=== PATIENT | female | born 1970 | race Caucasian/White ===

== ENCOUNTER 2016-05-06 14:26 | Emergency (ER) | payer OTHER ==
--- NOTE | 2016-05-06 15:10 | UC ---
Throat Pain/Nasal Floyd HPI - HPI Summary HPI Summary: Pt c/o nasal congestion, cough, sinus pressure, upper jaw "aching" X 2 weeks. - History of Current Complaint Chief Complaint: UCGeneralIllness Stated Complaint: COUGH/CONGESTION/DIZZY Time Seen by Provider: 05/06/16 15:08 Hx Obtained From: Patient Hx Last Menstrual Period: 04/08/16 ?: No Onset/Duration: Gradual Onset, Lasting Weeks - 2 weeks Severity: Moderate Associated Signs & Symptoms: Positive: Sinus Discomfort Related History: Seasonal Allergies, Smoking - Allergies/Home Medications Allergies/Adverse Reactions: Allergies Allergy/AdvReac Type Severity Reaction Status Date / Time Bee Venom Allergy Swelling Verified 05/06/16 14:46 Home Medications: Home Medications Nabumetone TAB* [Relafen TAB*] 500 mg PO BID 05/06/16 [History Confirmed ] PMH/Surg Hx/FS Hx/Imm Hx Previously Healthy: Yes Cardiovascular History Of: Reports: Hypertension - ON MEDS Respiratory History Of: Reports: COPD, Asthma - Surgical History Surgical History: Yes Surgery Procedure, Year, and Place: carpel tunnel in both wrist - Family History Known Family History: Positive: None Family History: no cardio vascular issues reported in family - Social History Alcohol Use: Rare Substance Use Type: None Smoking Status (MU): Heavy Every Day Tobacco Smoker Type: Cigarettes Amount Used/How Often: 1 PPD Length of Time of Smoking/Using Tobacco: 30+ Years Have You Smoked in the Last Year: Yes Household Exposure Type: Cigarettes - Immunization History Most Recent Influenza Vaccination: last year Most Recent Tetanus Shot: utd Most Recent Pneumonia Vaccination: none Review of Systems Constitutional: Fatigue Skin: Negative Eyes: Negative ENT: Dental Pain, Other - sinus pressure, nasal congestion Respiratory: Negative Cardiovascular: Negative Gastrointestinal: Negative Genitourinary: Negative Motor: Negative Neurovascular: Negative Musculoskeletal: Negative Neurological: Headache Psychological: Negative All Other Systems Reviewed And Are Negative: Yes Physical Exam Triage Information Reviewed: Yes Appearance: Ill-Appearing Vital Signs: Initial Vital Signs Temp 96.4 F 05/06/16 14:41 Pulse 70 05/06/16 14:41 Resp 18 05/06/16 14:41 BP 143/91 05/06/16 14:41 Pulse Ox 99 05/06/16 14:41 Eye Exam: Normal ENT Exam: Other ENT: Positive: Nasal congestion, TM bulging, Other: - maxillary sinus pressure Dental Exam: Other Dental: Positive: Other: - generalized dental ache upper jaw Neck exam: Normal Respiratory Exam: Normal Cardiovascular Exam: Normal Musculoskeletal Exam: Normal Neurological Exam: Normal Psychological Exam: Normal Skin Exam: Normal Throat Pain/Nasal Course/Dx - Differential Dx/Diagnosis Differential Diagnosis/HQI/PQRI: Influenza, Otitis Media, Sinusitis, URI Provider Diagnoses: sinusitis Discharge - Discharge Plan Condition: Stable Disposition: HOME Prescriptions: Amoxicillin (*) [Amoxicillin 875 MG (*)] 875 mg PO BID #20 tab Patient Education Materials: Sinusitis (ED) Referrals: Carly Castellanos MD [Primary Care Provider] - Additional Instructions: Please follow up with your PCP or return to clinic as needed. It is noted that your blood pressure is elevated at today's visit. Please follow up with your PCP in 2 days regarding this finding.
[2016-05-06 15:43] VITALS: BP 137/81
== END 2016-05-06 15:39 | disposition home or self-care (01) ==
LOC: UCCORT 14:26
DX: J32.9 Chronic sinusitis, unspecified (principal); I10 Essential (primary) hypertension; F17.210 Nicotine dependence, cigarettes, uncomplicated
CPT/HCPCS: 99212; G0463

== ENCOUNTER 2016-09-09 14:08 | Emergency (ER) | payer OTHER ==
[2016-09-09 14:27] VITALS: BP 111/73
--- NOTE | 2016-09-09 15:41 | UC ---
Throat Pain/Nasal Floyd HPI - HPI Summary HPI Summary: THREE DAYS OF SINUS PRESSURE TOOTHACE, EAR ACHE AND SORE THROAT. HAS FELT FEVERISH AT NIGHT - History of Current Complaint Chief Complaint: UCGeneralIllness Stated Complaint: SINUS COMPLAINT Time Seen by Provider: 09/09/16 14:15 Hx Obtained From: Patient Hx Last Menstrual Period: 04/08/16 Onset/Duration: Gradual Onset, Lasting Days, Still Present Severity: Moderate Pain Intensity: 0 Pain Scale Used: 0-10 Numeric Cough: None Associated Signs & Symptoms: Positive: Hoarseness, Sinus Discomfort, Nasal Discharge, Fever - Epiglottits Risk Factors Epiglottis Risk Factors: Negative - Allergies/Home Medications Allergies/Adverse Reactions: Allergies Allergy/AdvReac Type Severity Reaction Status Date / Time Bee Venom Allergy Swelling Verified 09/09/16 14:15 Home Medications: Home Medications Loratadine 1 cap DAILY 09/09/16 [History Confirmed 09/09/16] Omeprazole CAP* [Prilosec CAP* 20 MG] 40 mg PO BEDTIME 09/09/16 [History Confirmed 09/09/16] Varenicline (NF) [Chantix 1 MG TAB (NF)] 1 mg BID 09/09/16 [History Confirmed ] PMH/Surg Hx/FS Hx/Imm Hx Previously Healthy: Yes - Surgical History Surgical History: Yes Surgery Procedure, Year, and Place: carpel tunnel in both wrist - Family History Known Family History: Positive: None Negative: Cardiac Disease Family History: no cardio vascular issues reported in family - Social History Occupation: Employed Full-time Lives: With Family Alcohol Use: Rare Substance Use Type: None Smoking Status (MU): Current Every Day Smoker Type: Cigarettes Amount Used/How Often: 2-3 cig/day Length of Time of Smoking/Using Tobacco: 30+ Years Have You Smoked in the Last Year: Yes Household Exposure Type: Cigarettes - Immunization History Most Recent Influenza Vaccination: 2016 Most Recent Tetanus Shot: UTD Most Recent Pneumonia Vaccination: NONE Review of Systems Constitutional: Fever Skin: Negative Eyes: Negative ENT: Sore Throat Respiratory: Negative Cardiovascular: Negative Gastrointestinal: Negative Genitourinary: Negative Motor: Negative Neurovascular: Negative Musculoskeletal: Negative Neurological: Negative Psychological: Negative All Other Systems Reviewed And Are Negative: Yes Physical Exam Triage Information Reviewed: Yes Appearance: Well-Appearing, No Pain Distress, Well-Nourished Vital Signs: Initial Vital Signs Temp 97.9 F 09/09/16 14:19 Pulse 68 09/09/16 14:19 Resp 16 09/09/16 14:19 BP 111/73 09/09/16 14:19 Pulse Ox 100 09/09/16 14:19 Vital Signs Reviewed: Yes Eye Exam: Normal ENT: Positive: Hearing grossly normal, Pharynx normal, Nasal congestion, TM bulging, TM dull Dental Exam: Normal Neck exam: Normal Neck: Positive: Supple, Nontender, No Lymphadenopathy Respiratory Exam: Normal Respiratory: Positive: Chest non-tender, Lungs clear, Normal breath sounds, No respiratory distress, No accessory muscle use Cardiovascular Exam: Normal Cardiovascular: Positive: RRR, No Murmur, Pulses Normal Abdominal Exam: Normal Musculoskeletal Exam: Normal Musculoskeletal: Positive: Strength Intact, ROM Intact Neurological Exam: Normal Psychological Exam: Normal Skin Exam: Normal Throat Pain/Nasal Course/Dx - Differential Dx/Diagnosis Differential Diagnosis/HQI/PQRI: Sinusitis, Tonsillitis, URI Provider Diagnoses: SINUSITIS Discharge - Discharge Plan Condition: Stable Disposition: HOME Prescriptions: Amoxicillin/Clavulanate TAB* [Augmentin TAB 875*] 875 mg PO BID #20 tab Patient Education Materials: Sinusitis (ED) Forms: *Work Release Referrals: Carly Castellanos MD [Primary Care Provider] -
== END 2016-09-09 15:11 | disposition home or self-care (01) ==
LOC: UCCORT 14:08
DX: J32.9 Chronic sinusitis, unspecified (principal); Z91.030 Bee allergy status; F17.210 Nicotine dependence, cigarettes, uncomplicated
CPT/HCPCS: 99212; G0463

== ENCOUNTER 2017-05-16 14:18 | Emergency (ER) | payer BC ==
[2017-05-16 15:19] VITALS: BP 107/70
--- NOTE | 2017-05-16 15:53 | UC ---
FLU HPI - HPI Summary HPI Summary: Pt c/o sudden onset of cough, nasal congestion fever, chills, body aches, and fatigue X 3 days. - History of Current Complaint Hx Obtained From: Patient Hx Last Menstrual Period: 05/13/17 ?: No Onset/Duration: Sudden Onset, Lasting Days Severity Currently: Moderate Severity Initially: Mild Pain Intensity: 6 Associated Signs & Symptoms: Positive: Fever, Myalgia, Cough, Nasal Congestion Related Hx: Possible Flu/Infectious Exposure, Smoking Exposure - Risk Factors Influenza Risk Factors: Negative <Maria A Almonte NP - Last Filed: 05/16/17 16:13> <Gisela Oliveira - Last Filed: 05/16/17 16:34> - History of Current Complaint Chief Complaint: UCRespiratory Stated Complaint: HONG,COUGH,FATIGUE,MENEZES,BACK PAIN Time Seen by Provider: 05/16/17 14:51 - Allergy/Home Medications Allergies/Adverse Reactions: Allergies Allergy/AdvReac Type Severity Reaction Status Date / Time Bee sting Allergy Swelling Uncoded 05/16/17 15:09 Home Medications: Home Medications Acetaminophen [Acetaminophen Extra Strength] 1,000 mg PO SEE INSTRUCTIONS PRN [History Confirmed 05/16/17] Loratadine [Claritin] 10 mg PO DAILY 05/16/17 [History Confirmed 05/16/17] Losartan Potassium 25 mg PO DAILY 05/16/17 [History Confirmed 05/16/17] PMH/Surg Hx/FS Hx/Imm Hx Previously Healthy: Yes - Surgical History Surgical History: Yes Surgery Procedure, Year, and Place: carpel tunnel in both wrist, trigger thumb b /l; - Family History Known Family History: Positive: None Negative: Cardiac Disease Family History: no cardio vascular issues reported in family - Social History Occupation: Employed Full-time Lives: With Family Alcohol Use: None Substance Use Type: None Smoking Status (MU): Former Smoker Type: Cigarettes Amount Used/How Often: 2-3 cig/day Length of Time of Smoking/Using Tobacco: 30+ Years Have You Smoked in the Last Year: Yes When Did the Patient Quit Smoking/Using Tobacco: 05/13/17 Household Exposure Type: Cigarettes - Immunization History Most Recent Influenza Vaccination: 2016 Most Recent Tetanus Shot: UTD Most Recent Pneumonia Vaccination: NONE <Maria A Almonte NP - Last Filed: 05/16/17 16:13> Review of Systems Constitutional: Fever, Chills, Fatigue Skin: Negative Eyes: Negative ENT: Sinus Congestion, Sinus Pain/Tenderness Respiratory: Cough Cardiovascular: Negative Gastrointestinal: Negative Genitourinary: Negative Motor: Negative Neurovascular: Negative Musculoskeletal: Myalgia Neurological: Headache Psychological: Negative Is Patient Immunocompromised?: No All Other Systems Reviewed And Are Negative: Yes <Maria A Almonte NP - Last Filed: 05/16/17 16:13> Physical Exam Triage Information Reviewed: Yes Appearance: Ill-Appearing Vital Signs: Initial Vital Signs Temp 98.4 F 05/16/17 15:11 Pulse 71 05/16/17 15:11 Resp 20 05/16/17 15:11 BP 107/70 05/16/17 15:11 Pulse Ox 100 05/16/17 15:11 Vital Signs Reviewed: Yes Eye Exam: Normal ENT Exam: Other ENT: Positive: Nasal congestion Neck exam: Normal Respiratory Exam: Normal Cardiovascular Exam: Normal Musculoskeletal Exam: Normal Neurological Exam: Normal Psychological Exam: Normal Skin Exam: Normal <Maria A Almonte NP - Last Filed: 05/16/17 16:13> Vital Signs: Initial Vital Signs Temp 98.4 F 05/16/17 15:11 Pulse 71 05/16/17 15:11 Resp 20 05/16/17 15:11 BP 107/70 05/16/17 15:11 Pulse Ox 100 05/16/17 15:11 <Gisela Oliveira - Last Filed: 05/16/17 16:34> Diagnostics - Laboratory Diagnostic Studies Completed/Ordered: rapid flu: negative <Maria A Almonte NP - Last Filed: 05/16/17 16:13> Flu Course/Dx - Differential Dx/Diagnosis Differential Diagnosis/HQI/PQRI: Bronchitis, Influenza, Upper Respiratory Infection Provider Diagnoses: viral syndrome <Maria A Almonte NP - Last Filed: 05/16/17 16:13> Discharge - Sign-Out/Discharge Documenting (check all that apply): Discharge - Billing Disposition and Condition Condition: STABLE Disposition: HOME <Maria A Almonte NP - Last Filed: 05/16/17 16:13> - Billing Disposition and Condition Condition: STABLE Disposition: HOME <Gisela Oliveira - Last Filed: 05/16/17 16:34> - Discharge Plan Condition: Stable Disposition: HOME Prescriptions: Benzonatate CAP* [Tessalon 100 MG CAP*] 100 mg PO TID PRN #30 cap PRN Reason: Cough methylPREDNISolone TAB* [Medrol TAB*] 4 - 8 mg PO .SEE DERRELL #1 derrell Montelukast Sodium TAB* [Singulair TAB*] 10 mg PO BEDTIME #20 tab Patient Education Materials: Reactive Airways Disease (ED), Viral Syndrome (ED) Forms: *Work Release Referrals: Carly Castellanos MD [Primary Care Provider] - If Needed Attestation Statement User Type: Provider - I was available for consult. This patient was seen by the advanced practice provider. The patient was not presented to, seen by, or examined by me.-Ljj <Gisela Oliveira - Last Filed: 05/16/17 16:34>
== END 2017-05-16 16:04 | disposition home or self-care (01) ==
LOC: UCCORT 14:18
DX: B34.9 Viral infection, unspecified (principal); Z87.891 Personal history of nicotine dependence
CPT/HCPCS: 87502; 99212; G0463

== ENCOUNTER 2018-08-24 12:45 | Emergency (ER) | payer OTHER ==
[2018-08-24 14:27] VITALS: BP 133/80
[2018-08-24] MEDS ORDERED: Tetan/Diph/Pertus SYR(Tdap)* 0.5 ML SYR(BOOSTRIX) use SYR IM ONE (14:36)
--- NOTE | 2018-08-24 15:09 | UC ---
Laceration HPI - HPI Summary HPI Summary: Jumped in more last night and caught leg on a nail when she was getting out. Here mainly for a tetanus shot. Pt discharged from [facility] yesterday. - History Of Current Complaint Chief Complaint: UCWounds Stated Complaint: RT TALBOT COMPLAINT Time Seen by Provider: 08/24/18 14:30 Hx Obtained From: Patient Hx Last Menstrual Period: 05/13/17 Laceration Location: Leg Mechanism Of Injury: Sharp Trauma Onset/Duration: Sudden Onset, Lasting Hours Severity: Moderate Pain Intensity: 5 - Allergies/Home Medications Allergies/Adverse Reactions: Allergies Allergy/AdvReac Type Severity Reaction Status Date / Time baclofen Allergy Headache Verified 08/24/18 14:28 Bee sting Allergy Swelling Uncoded 05/16/17 15:09 Home Medications: Home Medications Cefdinir cap* [Cefdinir 300 MG cap (NF)] 300 mg PO BID 08/24/18 [History Confirmed 08/24/18] DULoxetine DR CAP* [Cymbalta CAP*] 20 mg PO BID 08/24/18 [History Confirmed 06/09] Gabapentin CAP(*) [Neurontin 400 mg CAP(*)] 400 mg PO QID 08/24/18 [History Confirmed 08/24/18] Hydrocodone/Acetaminophen [Hydrocodone/Acetaminophen 5-325 mg] 1 tab PO DAILY [History Confirmed 08/24/18] Lactobacillus Acidophilus [Freeze Dried Acidophilus] 1 cap PO DAILY 08/24/18 [ History Confirmed 08/24/18] Pantoprazole TAB * [Protonix TAB*] 40 mg PO DAILY 08/24/18 [History Confirmed ] celeCOXIB CAP* [CeleBREX CAP*] 100 mg PO DAILY 08/24/18 [History Confirmed 08/24] PMH/Surg Hx/FS Hx/Imm Hx Previously Healthy: Yes - Surgical History Surgical History: Yes Surgery Procedure, Year, and Place: carpel tunnel in both wrist, trigger thumb b /l; - Family History Known Family History: Positive: None Negative: Cardiac Disease Family History: no cardio vascular issues reported in family - Social History Alcohol Use: None Substance Use Type: None Smoking Status (MU): Heavy Every Day Tobacco Smoker Type: Cigarettes Amount Used/How Often: 1 ppd Length of Time of Smoking/Using Tobacco: 30+ Years Have You Smoked in the Last Year: Yes When Did the Patient Quit Smoking/Using Tobacco: 05/13/17 Household Exposure Type: Cigarettes - Immunization History Most Recent Influenza Vaccination: 2016 Most Recent Tetanus Shot: UTD Most Recent Pneumonia Vaccination: NONE Review of Systems All Other Systems Reviewed And Are Negative: Yes Skin: Positive: Other - open laceration Is Patient Immunocompromised?: No Physical Exam Triage Information Reviewed: Yes Appearance: Well-Appearing, Well-Nourished, Pain Distress Vital Signs: Initial Vital Signs Temp 97.8 F 08/24/18 14:20 Pulse 84 08/24/18 14:20 Resp 18 08/24/18 14:20 BP 133/80 08/24/18 14:20 Pulse Ox 100 08/24/18 14:20 Vital Signs Reviewed: Yes Eye Exam: Normal ENT Exam: Normal Dental Exam: Normal Neck exam: Normal Respiratory Exam: Normal Cardiovascular Exam: Normal Abdominal Exam: Normal Musculoskeletal Exam: Normal Neurological Exam: Normal Psychological Exam: Normal Skin: Positive: Significant Lesion(s) - irregular feliz shaped lac on lateral side of right lower leg Laceration Course/Dx - Course/Dx Course Of Treatment: history obtained, exam performed ,meds reviewed, laceration was too old to suture, vaseline gauze and telfa applied, patient is currently on a cephalosporins for another ailment. tetanus given - Differential Dx - Laceration/Wound Differental Diagnoses: Laceration - Diagnosis Provider Diagnosis: Laceration Discharge - Sign-Out/Discharge Documenting (check all that apply): Patient Departure All imaging exams completed and their final reports reviewed: No Studies - Discharge Plan Condition: Stable Disposition: HOME Patient Education Materials: Acute Wound Care (ED) Referrals: Rocio Senior NP [Primary Care Provider] - Additional Instructions: 1. use the vaseline guaze to keep it moist for the next fewq days 2., Keep it covered. 3. You are already on antibiotics that are approriate for skin wounds. 4. FOllow up with any changes in condition 5. You received a tetanus shot today - Billing Disposition and Condition Condition: STABLE Disposition: Home
== END 2018-08-24 15:17 | disposition home or self-care (01) ==
LOC: UCCORT 12:45
DX: S81.811A Laceration without foreign body, right lower leg, initial encounter (principal); W26.8XXA Contact with other sharp object(s), not elsewhere classified, initial encounter; Y93.89 Activity, other specified; Y92.838 Other recreation area as the place of occurrence of the external cause; Z23 Encounter for immunization; F17.210 Nicotine dependence, cigarettes, uncomplicated
CPT/HCPCS: 90471; 90715; 99212; G0463

== ENCOUNTER 2023-08-18 01:51 | Observation (INO) ==
[2023-08-18 04:23] LABS: ABS Basophils 0.1 10^3/uL (0.0-0.1); ABS Eosinophils 0.2 10^3/uL (0.0-0.5); ABS Lymphocytes 2.6 10^3/uL (1.0-4.8); ABS Monocytes 0.9 10^3/uL (0.0-0.9); ABS Neutrophils 8.7 10^3/uL (1.5-7.6); ABS Nucleated RBC 0.01 10^3/ul; Eosinophil % 1.2 %; Hematocrit 39.6 % (35-45); Hemoglobin 13.9 g/dL (11.5-14.3); Lymphocyte % 21.1 %; Mean Corpuscular Hemoglobin 31.9 pg (27-33); Mean Corpuscular Hgb Conc 35.2 g/dL (31-36); Mean Corpuscular Volume 90.6 fL (80-97); Nucleated Red Blood Cells % 0.1 %/100WBC (0.0-0.8); Platelet Count 352 10^3/uL (150-450); Red Blood Count 4.37 10^6/uL (3.63-4.92); Red Cell Distribution Width 14.6 % (12-17); White Blood Count 12.4 10^3/uL (3.8-11.8)
[2023-08-18] MEDS ORDERED: Albuterol HFA INHALER 8 gm MDI INH PRN (04:33)
[2023-08-18 05:13] LABS: Albumin 4.5 g/dL (3.2-5.2); Calcium 9.5 mg/dL (8.6-10.3); Creatinine, Serum 1.3 mg/dL (0.51-0.95); Globulin 2.3 g/dL (2-4); Magnesium 1.8 mg/dL (1.9-2.7); Potassium 3.9 mmol/L (3.5-5.0); Total Bilirubin 0.5 mg/dL (0.2-1.0); Total Protein 6.8 g/dL (6.4-8.9); eGFR CKD-EPI 49.2 (>60)
[2023-08-18] MEDS: Magnesium Sulfate IV 1GM/100ML 1 GM/100 ML BAG IV ONE (05:51)
[2023-08-18] MEDS: hydrALAZINE 20 mg/ml 1 ML Vial IV IV SLOW PU ONE (07:54)
[2023-08-18 07:55] LABS: HDL Cholesterol 46.4 mg/dL
[2023-08-18 08:03] LABS: Osmolality Serum 277 mOsm/kg (275-295)
[2023-08-18 08:10] LABS: TSH Ultra Thyroid Stim Horm 1.39 mcIU/mL (0.34-5.60)
[2023-08-18] MEDS: SPIRIVA Respimat (tiotropium) 2.5 mcg/inh Inhaler INH SCH (09:16)
[2023-08-18] MEDS: Nicotine PATCH 21 MG/24 HR PATCH TRANSDERM SCH (09:19)
[2023-08-18] MEDS ORDERED: Sulfur Hexaflouride MICROSPHR 25 MG VIAL ONE (10:15)
[2023-08-18 10:48] LABS: Urine Potassium Concentration 16.6 mmol/L
[2023-08-18 10:57] LABS: Urine Osmo 422 mOsm/kg (150-1150)
[2023-08-18] MEDS: Enoxaparin 40 MG/0.4 ML SYR SUBCUT SCH (11:05)
[2023-08-18] MEDS: Sulfur Hexaflouride MICROSPHR 25 MG VIAL IV ONE (12:48)
[2023-08-18 16:19] VITALS: BP 170/89
== END 2023-08-18 18:26 | disposition home or self-care (01) ==
LOC: EDHOLD 01:51 → ED 01:51 → SUATTDRO 04:23 → MEDTELE 13:43
PROVIDERS: ADMIT Hospitalist; ATTEND Student in an Organized Health Care Education/Training Program